=== PATIENT | male | born 1995 | race Caucasian/White ===

== ENCOUNTER → 2016-06-07 | Outpatient (CLI) | payer BC ==
--- NOTE | 2016-06-07 10:39 | DX ---
Right Wrist, Four Views History: Follow up navicular fracture from March 18, 2016. S62.024A Comparison: April 2016 Findings: Oblique fracture through the right scaphoid mid body demonstrates partial visualization of the fracture line along the radial aspect with previous sclerosis at the fracture line resolved. Ther e is satisfactory alignment. No additional fractures are identified. No dislocation. No widening of t he scapholunate ligament. Impression: Continued healing of right scaphoid fracture with partial visualization of the fracture l ine.
== END ==
LOC: BMCIMAGING 09:52
PROVIDERS: ATTEND Physician Assistant
DX: S62.024D Nondisplaced fracture of middle third of navicular [scaphoid] bone of right wrist, subsequent encounter for fracture with routine healing (principal)